=== PATIENT | female | born 1950 | race African-American/Black ===

== ENCOUNTER → 2016-08-31 | Outpatient (CLI) | payer OTHER | LOC: WI 07:26 | PROVIDERS: ATTEND Nurse Practitioner Psychiatric/Mental Health | DX: Z12.31 Encounter for screening mammogram for malignant neoplasm of breast (principal) | CPT/HCPCS: 77067; G0202 ==

== ENCOUNTER 2017-01-13 21:11 | Emergency (ER) | payer OTHER ==
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
[2017-01-13] MEDS ORDERED: ACETAMINOPHEN 325 MG TABLET PO ONE (21:56)
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
[2017-01-13 23:18] VITALS: BP 132/87
== END 2017-01-13 23:16 | disposition home or self-care (01) ==
LOC: ER 21:11
DX: M79.671 Pain in right foot (principal); X50.1XXA Overexertion from prolonged static or awkward postures, initial encounter; M79.89 Other specified soft tissue disorders
CPT/HCPCS: 99283; 73630; L1902

== ENCOUNTER 2017-12-17 15:11 | Emergency (ER) | payer OTHER, MEDICARE ==
[2017-12-17 15:17] VITALS: BP 139/80
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
== END 2017-12-17 16:50 | disposition home or self-care (01) ==
LOC: ER 15:11
DX: M54.2 Cervicalgia (principal); R20.0 Anesthesia of skin; R20.2 Paresthesia of skin; V49.50XA Passenger injured in collision with unspecified motor vehicles in traffic accident, initial encounter; I10 Essential (primary) hypertension
CPT/HCPCS: 99283; 70450; 72125; L0120

== ENCOUNTER → 2019-01-28 | Outpatient (CLI) | payer MEDICARE, OTHER ==
--- NOTE | 2019-01-28 15:35 | RADIOLOGY REPORT (SQ) ---
EXAM DESCRIPTION: VENOUS UNILATERAL LOWER COMPLETED DATE/TIME: 01/28/2019 1:53 pm REASON FOR STUDY: LLE EDEMA R60.0 LOCALIZED EDEMA COMPARISON: 11/30/2015 TECHNIQUE: Dynamic and static montague scale and color images acquired of the left leg venous system. Se lected spectral images acquired with additional compression and augmentation maneuvers. The contralat eral common femoral vein and saphenofemoral junction were also imaged. Images stored on PACS. LIMITATIONS: None. FINDINGS: LEFT COMMON FEMORAL: Normal phasicity, compression and augmentation. No visualized echogenic material on g ray scale. No defects on color images. FEMORAL: Normal compression and augmentation. No visualized echogenic material on montague scale. No defe cts on color images. POPLITEAL: Normal compression, augmentation. No visualized echogenic material on montague scale. No defec ts on color images. CALF VESSELS: Normal compression, augmentation. No visualized echogenic material on montague scale. No de fects on color images. GSV and SSV: Normal compression, augmentation. No visualized echogenic material on montague scale. No def ects on color images. ANY DEEP VENOUS INSUFFICIENCY: Not evaluated. ANY EVIDENCE OF POPLITEAL CYST: No. OTHER: No other significant finding. RIGHT COMMON FEMORAL VEIN AND SAPHENOFEMORAL JUNCTION: Normal phasicity, compression and augmentation. No visualized echogenic material on montague scale. No de fects on color images. IMPRESSION: NO EVIDENCE OF DVT OR SVT IN THE LEFT LEG. TECHNICAL DOCUMENTATION: JOB ID: [id number] [employer]- All Rights Reserved Reading location - IP/workstation name: [email or web address]
== END ==
LOC: SP 10:47
PROVIDERS: ATTEND Internal Medicine Geriatric Medicine
DX: R60.0 Localized edema (principal)
CPT/HCPCS: 93971